=== PATIENT | female | born 1975 | race Caucasian/White ===

== ENCOUNTER 2016-11-13 20:49 | Emergency (ER) | payer BC, MEDICAID ==
[~2016-11-13] VITALS: Ht 172.7 cm; Wt 79.5 kg
[~2016-11-13 20:49] MED LIST: ABILIFY5 MG PO; ADDERALL XR30 MG PO; DESYREL 50MG50 MG PO; FLOVENT DI50 MCG/Act IH; IMITREX100 MG PO; KLONOPIN 0.5MG0.5 MG PO; MIRAPEX0.5 MG PO; NORCO 325 MG-51 TAB PO; PRIL40 PO; PROVENTIL0.09 MG/A1 IH; RESTORIL30 MG PO; RT ADVAIR 128 DISKUS IH; TOPAMAX50 MG PO; VALIUM 10MG10 MG/TAB PO; XOPENEX HF0.045 MG/A IH; ZYRTEC 10MG10 MG PO
[2016-11-13 20:53] VITALS: BP 119/80; TEMP 98
[2016-11-14 00:23] VITALS: PULSE 80
== END 2016-11-13 23:10 | disposition home or self-care (01) ==
LOC: COL.ER 20:49
DX: S63.502A Unspecified sprain of left wrist, initial encounter (principal); W10.1XXA Fall (on)(from) sidewalk curb, initial encounter; Y92.414 Local residential or business street as the place of occurrence of the external cause; J45.909 Unspecified asthma, uncomplicated; J44.9 Chronic obstructive pulmonary disease, unspecified; F17.210 Nicotine dependence, cigarettes, uncomplicated; F32.9 Major depressive disorder, single episode, unspecified; F41.9 Anxiety disorder, unspecified

== ENCOUNTER 2017-04-14 10:21 | Emergency (ER) | payer MEDICAID ==
[~2017-04-14] VITALS: Ht 172.7 cm; Wt 82.7 kg
[2017-04-14 10:26] VITALS: BP 111/78; TEMP 98.9
[2017-04-14 11:02] LABS: COLLECTION METHOD CLEAN CATCH
[2017-04-14] MEDS ORDERED: NEURONTIN300 MG/CAP PO (11:02)
[2017-04-14] MEDS ORDERED: XANAX .25M0.25 MG/TA PO (11:02)
[2017-04-14 11:07] LABS: PH 7 (5-8); SQUAMOUS EPITHELIAL 0-2 /hpf; URINE APPEARANCE Clear; URINE BACTERIA Rare /hpf; URINE BILIRUBIN Negative (NEGATIVE); URINE BLOOD Negative (NEGATIVE); URINE COLOR Straw; URINE GLUCOSE Negative (NEGATIVE); URINE KETONE Negative (NEGATIVE); URINE LEUKOCYTE ESTERASE Negative (NEGATIVE); URINE PROTEIN(semi-quant) Negative (NEGATIVE); URINE RBC 0-2 /hpf; URINE UROBILINOGEN Negative (NEGATIVE); URINE WBC 0-2 /hpf
[2017-04-14] MEDS ORDERED: NORCO 325 MG-51 TAB PO (11:42)
[2017-04-14 11:54] VITALS: PULSE 90
== END 2017-04-14 11:55 | disposition home or self-care (01) ==
LOC: COL.ER 10:21
PROVIDERS: Physician Assistant Medical
DX: S20.222A Contusion of left back wall of thorax, initial encounter (principal); S10.93XA Contusion of unspecified part of neck, initial encounter; Z90.710 Acquired absence of both cervix and uterus; W22.8XXA Striking against or struck by other objects, initial encounter
CPT/HCPCS: A9284

== ENCOUNTER 2017-07-09 18:34 | Emergency (ER) | payer MEDICAID ==
[~2017-07-09] VITALS: Ht 172.7 cm; Wt 79.1 kg
[~2017-07-09 18:34] MED LIST changes: +NEURONTIN300 MG/CAP PO; +XANAX .25M0.25 MG/TA PO
[2017-07-09 18:39] VITALS: TEMP 98.6
[2017-07-09] MEDS ORDERED: LYRICA 50MG CAP50 MG PO (18:58)
[2017-07-09] MEDS ORDERED: KLONOPIN WAF0.125 MG PO (18:59)
[2017-07-09 19:52] LABS: INFLUENZA A NEGATIVE; INFLUENZA B NEGATIVE
[2017-07-09 20:57] VITALS: BP 120/74; PULSE 80
== END 2017-07-09 21:00 | disposition home or self-care (01) ==
LOC: COL.ER 18:34
PROVIDERS: Nurse Practitioner
DX: J06.9 Acute upper respiratory infection, unspecified (principal); J45.909 Unspecified asthma, uncomplicated; G43.909 Migraine, unspecified, not intractable, without status migrainosus; K21.9 Gastro-esophageal reflux disease without esophagitis; M79.7 Fibromyalgia; F32.9 Major depressive disorder, single episode, unspecified; F41.9 Anxiety disorder, unspecified; F17.210 Nicotine dependence, cigarettes, uncomplicated

== ENCOUNTER 2018-01-11 18:37 | Emergency (ER) | payer MEDICAID ==
[~2018-01-11] VITALS: Ht 172.7 cm; Wt 86.4 kg
[~2018-01-11 18:37] MED LIST changes: +KLONOPIN WAF0.125 MG PO; +LYRICA 50MG CAP50 MG PO
[2018-01-11 18:40] VITALS: TEMP 97.6
[2018-01-11] MEDS ORDERED: DEPAKOTE500 MG PO (19:17)
[2018-01-11 19:29] LABS: COLLECTION METHOD CLEAN CATCH
[2018-01-11 19:36] LABS: MUCOUS Present /lpf; PH 5 (5-8); URINE APPEARANCE Clear; URINE BACTERIA None Seen /hpf; URINE BILIRUBIN Negative (NEGATIVE); URINE BLOOD Negative (NEGATIVE); URINE COLOR Yellow; URINE GLUCOSE Negative (NEGATIVE); URINE KETONE Negative (NEGATIVE); URINE LEUKOCYTE ESTERASE Negative (NEGATIVE); URINE NITRATE Negative (NEGATIVE); URINE PROTEIN(semi-quant) Negative (NEGATIVE); URINE RBC 0-2 /hpf; URINE UROBILINOGEN Negative (NEGATIVE)
[2018-01-11 21:20] VITALS: BP 125/70; PULSE 69
== END 2018-01-11 21:23 | disposition home or self-care (01) ==
LOC: COL.ER 18:37
PROVIDERS: Physician Assistant
DX: S60.212A Contusion of left wrist, initial encounter (principal); S90.01XA Contusion of right ankle, initial encounter; S90.31XA Contusion of right foot, initial encounter; G43.909 Migraine, unspecified, not intractable, without status migrainosus; M79.7 Fibromyalgia; F17.210 Nicotine dependence, cigarettes, uncomplicated; Z90.710 Acquired absence of both cervix and uterus; Z98.890 Other specified postprocedural states; Z86.73 Personal history of transient ischemic attack (TIA), and cerebral infarction without residual deficits; W10.9XXA Fall (on) (from) unspecified stairs and steps, initial encounter

== ENCOUNTER 2018-08-08 09:53 | Emergency (ER) | payer MEDICAID ==
[~2018-08-08] VITALS: Ht 172.7 cm; Wt 90.7 kg
[~2018-08-08 09:53] MED LIST changes: +DEPAKOTE500 MG PO
[2018-08-08 09:56] VITALS: TEMP 97.9
[2018-08-08 10:33] LABS: COLLECTION METHOD CLEAN CATCH
[2018-08-08 10:40] LABS: MUCOUS Present /lpf; PH 5 (5-8); SQUAMOUS EPITHELIAL 0-2 /hpf; URINE APPEARANCE Clear; URINE BACTERIA Rare /hpf; URINE BILIRUBIN Negative (NEGATIVE); URINE BLOOD Negative (NEGATIVE); URINE COLOR Yellow; URINE GLUCOSE Negative (NEGATIVE); URINE KETONE Negative (NEGATIVE); URINE LEUKOCYTE ESTERASE Negative (NEGATIVE); URINE NITRATE Negative (NEGATIVE); URINE PROTEIN(semi-quant) Negative (NEGATIVE); URINE RBC 0-2 /hpf; URINE UROBILINOGEN Negative (NEGATIVE)
[2018-08-08 10:41] LABS: BASO # 0.1 (0.0-0.2); BASO % 0.6 % (0.0-2.0); EOS # 0.2 (0.0-0.7); EOS % 1.9 % (0-4.0); GRAN # 5.3 (1.4-6.5); GRAN % 57.2 % (42.2-75.2); HEMATOCRIT 37.9 % (37.0-47.0); HEMOGLOBIN 13.1 g/dl (12.5-16.0); LYMPH # 3.1 (1.2-3.4); LYMPH % 33.3 % (20.0-51.0); MEAN CELL VOLUME 94 fl (80.0-100.0); MEAN CORPUSCULAR HEMOGLOBIN 33 pg (27.0-31.0); MEAN CORPUSCULAR HGB CONC 35 g/dl (33.0-37.0); MEAN PLATELET VOLUME 9.8 fl (7.4-10.4); MONO # 0.6 (0.1-0.6); MONO % 6.7 % (1.7-9.3); PLATELET COUNT 248 K/mm3 (130-400); RED BLOOD COUNT 4.02 M/mm3 (4.10-5.30); REDCELL DISTRIBUTION WIDTH-CV 12.7 % (11.5-14.5)
[2018-08-08] MEDS ORDERED: KLONOPIN 1MG1 MG PO (10:42)
[2018-08-08] MEDS ORDERED: MAXALT10 MG PO (10:42)
[2018-08-08 10:55] LABS: ALANINE AMINOTRANSFERASE 21 U/L (9-52); ALBUMIN 4.2 gm/dL (3.5-5.0); ALKALINE PHOSPHATASE 55 U/L (50-136); ANION GAP 9 mmol/L (7-16); AST,SGOT 17 U/L (15-37); BILIRUBIN,TOTAL 0.3 mg/dL (0.0-1.0); BLOOD UREA NITROGEN 5 mg/dL (7-17); CALCIUM 9.7 mg/dL (8.4-10.2); CARBON DIOXIDE 25 mmol/L (22-30); CHLORIDE 104 mmol/L (98-107); CREATININE, serum 0.61 mg/dL (0.52-1.25); GLUCOSE 80 mg/dL (74-106); LIPASE 70 U/L (23-300); POTASSIUM 3.7 mmol/L (3.4-5.0); SODIUM 138 mmol/L (137-145); TOTAL PROTEIN 7.1 gm/dL (6.4-8.2)
[2018-08-08 10:58] LABS: C-REACTIVE PROTEIN < 0.5 mg/dL (0.0-0.9)
[2018-08-08] MEDS ORDERED: FLEXERIL 1010 MG/TAB PO (12:55)
[2018-08-08 13:27] VITALS: BP 112/68; PULSE 65
== END 2018-08-08 13:27 | disposition home or self-care (01) ==
LOC: COL.ER 09:53
PROVIDERS: Physician Assistant
DX: M79.7 Fibromyalgia (principal); R10.9 Unspecified abdominal pain; J44.9 Chronic obstructive pulmonary disease, unspecified; G43.909 Migraine, unspecified, not intractable, without status migrainosus; F32.9 Major depressive disorder, single episode, unspecified; F41.9 Anxiety disorder, unspecified; F17.210 Nicotine dependence, cigarettes, uncomplicated; Z88.0 Allergy status to penicillin; Z88.5 Allergy status to narcotic agent; Z90.710 Acquired absence of both cervix and uterus
CPT/HCPCS: J1170; J2270; J2405; J2550; J7030; Q9967

== ENCOUNTER 2018-12-26 20:16 | Emergency (ER) | payer MEDICAID ==
[~2018-12-26] VITALS: Ht 172.7 cm; Wt 90.5 kg
[~2018-12-26 20:16] MED LIST changes: +FLEXERIL 1010 MG/TAB PO; +KLONOPIN 1MG1 MG PO; +MAXALT10 MG PO
[2018-12-26 20:24] VITALS: TEMP 99.3
[2018-12-26 21:03] LABS: BASO % 0.5 % (0.0-2.0); EOS # 0.1 (0.0-0.7); EOS % 1.6 % (0-4.0); GRAN # 4.9 (1.4-6.5); GRAN % 57.1 % (42.2-75.2); HEMATOCRIT 37.3 % (37.0-47.0); HEMOGLOBIN 12.6 g/dl (12.5-16.0); LYMPH # 2.7 (1.2-3.4); LYMPH % 31.6 % (20.0-51.0); MEAN CELL VOLUME 96 fl (80.0-100.0); MEAN CORPUSCULAR HEMOGLOBIN 32 pg (27.0-31.0); MEAN CORPUSCULAR HGB CONC 34 g/dl (33.0-37.0); MEAN PLATELET VOLUME 9.8 fl (7.4-10.4); MONO # 0.8 (0.1-0.6); MONO % 8.8 % (1.7-9.3); PLATELET COUNT 196 K/mm3 (130-400); REDCELL DISTRIBUTION WIDTH-CV 12.7 % (11.5-14.5)
[2018-12-26 21:21] LABS: ALBUMIN 3.8 gm/dL (3.5-5.0); BILIRUBIN,TOTAL 0.2 mg/dL (0.0-1.0); C-REACTIVE PROTEIN 6.3 mg/dL (0.0-0.9); CALCIUM 9.2 mg/dL (8.4-10.2); CREATININE, serum 0.7 (0.52-1.25); POTASSIUM 3.8 mmol/L (3.4-5.0); TOTAL PROTEIN 6.7 gm/dL (6.4-8.2)
[2018-12-26] MEDS ORDERED: ZOFRAN ODT4 MG PO (22:30)
[2018-12-27 01:28] VITALS: BP 102/63; PULSE 83
[2018-12-27] MEDS ORDERED: ZYRTEC 10MG10 MG PO (16:48)
[2018-12-27] MEDS ORDERED: AMITRIPTYLINE H25 M1 PO (16:49)
[2018-12-27] MEDS ORDERED: PROVENTIL0.09 MG/A1 IH (16:49)
[2018-12-27] MEDS ORDERED: MAG-OX 400400 MG/TAB PO (16:50)
[2018-12-27] MEDS ORDERED: RT ADVAIR HFA 2312 G IH (16:52)
[2018-12-27] MEDS ORDERED: SINGULAIR 110 MG/TAB PO ×2 (16:52→20:55)
[2018-12-27] MEDS ORDERED: KLONOPIN 0.5MG0.5 MG PO (20:51)
[2018-12-27] MEDS ORDERED: ZOFRAN8 MG PO (20:52)
[2018-12-27] MEDS ORDERED: LYRICA 150MG C150 MG PO (20:53)
[2018-12-27] MEDS ORDERED: PRIL40 PO (20:54)
== END 2018-12-27 01:29 | disposition home or self-care (01) ==
LOC: COL.ER 20:16
PROVIDERS: Emergency Medicine
DX: R11.2 Nausea with vomiting, unspecified (principal); R19.7 Diarrhea, unspecified; G43.909 Migraine, unspecified, not intractable, without status migrainosus; M79.7 Fibromyalgia; Z88.0 Allergy status to penicillin; Z88.5 Allergy status to narcotic agent; Z90.710 Acquired absence of both cervix and uterus
CPT/HCPCS: J2060; J2405; J2550; J3010; J7030

== ENCOUNTER 2018-12-27 16:21 | Inpatient (IN) | payer MEDICAID ==
[~2018-12-27] VITALS: Ht 172.7 cm; Wt 87.9 kg
[~2018-12-27 16:21] MED LIST changes: +ZOFRAN ODT4 MG PO
[2018-12-27] MEDS ORDERED: ZYRTEC 10MG10 MG PO (16:48)
[2018-12-27] MEDS ORDERED: PROVENTIL0.09 MG/A1 IH (16:49)
[2018-12-27] MEDS ORDERED: AMITRIPTYLINE H25 M1 PO (16:49)
[2018-12-27] MEDS ORDERED: MAG-OX 400400 MG/TAB PO (16:50)
[2018-12-27] MEDS ORDERED: SINGULAIR 110 MG/TAB PO ×2 (16:52→20:55)
[2018-12-27] MEDS ORDERED: RT ADVAIR HFA 2312 G IH (16:52)
[2018-12-27 17:16] LABS: BASO # 0.1 (0.0-0.2); BASO % 0.7 % (0.0-2.0); EOS # 0.2 (0.0-0.7); EOS % 2.5 % (0-4.0); GRAN # 2.9 (1.4-6.5); GRAN % 41.5 % (42.2-75.2); HEMATOCRIT 37.4 % (37.0-47.0); HEMOGLOBIN 12.3 g/dl (12.5-16.0); LYMPH # 3.1 (1.2-3.4); LYMPH % 44.3 % (20.0-51.0); MEAN CELL VOLUME 96 fl (80.0-100.0); MEAN CORPUSCULAR HEMOGLOBIN 32 pg (27.0-31.0); MEAN CORPUSCULAR HGB CONC 33 g/dl (33.0-37.0); MEAN PLATELET VOLUME 9.7 fl (7.4-10.4); MONO # 0.7 (0.1-0.6); MONO % 10.7 % (1.7-9.3); PLATELET COUNT 241 K/mm3 (130-400); RED BLOOD COUNT 3.88 M/mm3 (4.10-5.30); REDCELL DISTRIBUTION WIDTH-CV 12.8 % (11.5-14.5)
[2018-12-27 17:32] LABS: ALBUMIN 3.7 gm/dL (3.5-5.0); BILIRUBIN,TOTAL 0.1 mg/dL (0.0-1.0); C-REACTIVE PROTEIN 6.1 mg/dL (0.0-0.9); CALCIUM 9.1 mg/dL (8.4-10.2); CREATININE, serum 0.68 (0.52-1.25); TOTAL PROTEIN 6.6 gm/dL (6.4-8.2)
--- NOTE | 2018-12-27 20:20 | NUR ---
Pt arrives to surgical floor via stretcher from ER. Transferred to bed. at bedside. Pt c/o LLQ pain 5/10 that is cramping and constant. Pt also c/o nausea. Abdomen soft, tender. BS+. Respirations even and unlabored. Lungs clear. IV in L AC. Pt requests to have site moved. No needs noted at this time. Will continue to monitor.
[2018-12-27] MEDS ORDERED: KLONOPIN 0.5MG0.5 MG PO (20:51)
[2018-12-27] MEDS ORDERED: ZOFRAN8 MG PO (20:52)
[2018-12-27] MEDS ORDERED: LYRICA 150MG C150 MG PO (20:53)
[2018-12-27] MEDS ORDERED: PRIL40 PO (20:54)
[2018-12-27 21:15] VITALS: BP 96/65; PULSE 76; TEMP 97.5
[2018-12-27 22:12] VITALS: BP 96/65; PULSE 76; TEMP 97.5
[2018-12-27 23:07] LABS: COLLECTION METHOD CLEAN CATCH
[2018-12-27 23:16] VITALS: BP 89/50; PULSE 72; PULSE 74; TEMP 97.7
--- NOTE | 2018-12-27 23:23 | NUR ---
Second dose of Fentanyl given and patient reporting itching that she had after Dilaudid in ER. Meche FALCON called, but was unable to talk at the moment. Pts blood pressure is also low. Will continue to monitor.
[2018-12-27 23:24] LABS: MUCOUS Present /lpf; PH 5 (5-8); URINE APPEARANCE Clear; URINE BACTERIA Rare /hpf; URINE BILIRUBIN Negative (NEGATIVE); URINE BLOOD Negative (NEGATIVE); URINE COLOR Yellow; URINE GLUCOSE Negative (NEGATIVE); URINE KETONE Negative (NEGATIVE); URINE LEUKOCYTE ESTERASE Negative (NEGATIVE); URINE NITRATE Negative (NEGATIVE); URINE PROTEIN(semi-quant) Negative (NEGATIVE); URINE RBC 0-2 /hpf; URINE UROBILINOGEN Negative (NEGATIVE)
[2018-12-27 23:53] VITALS: BP 89/50; PULSE 74; TEMP 98
--- NOTE | 2018-12-28 | NUR ---
Orders received from Meche FALCON to give Benadryl IV for itching. Minerva also made aware of patients blood pressure. No other orders.
[2018-12-28 03:42] VITALS: BP 82/54; PULSE 70; TEMP 98
--- NOTE | 2018-12-28 03:45 | NUR ---
Pt states that her pain is starting to come back and again. PRN pain meds given. Pt denies nausea or itching.
--- NOTE | 2018-12-28 06:00 | NUR ---
Pt resting with HOB elevated this AM. No distress noted. Pt reporting pain in LLQ is increased to 5/10 and is requesting PRN meds. Pt has been hypotension. Provider aware and no orders were given. Pt is asymptomatic and reports that her blood pressure runs low normally. No needs noted.
[2018-12-28 06:12] LABS: BASO # 0.1 (0.0-0.2); EOS # 0.1 (0.0-0.7); EOS % 2.5 % (0-4.0); GRAN # 2.3 (1.4-6.5); GRAN % 48.1 % (42.2-75.2); HEMOGLOBIN 11.1 g/dl (12.5-16.0); LYMPH # 1.9 (1.2-3.4); LYMPH % 39.3 % (20.0-51.0); MEAN CELL VOLUME 97 fl (80.0-100.0); MEAN CORPUSCULAR HEMOGLOBIN 32 pg (27.0-31.0); MEAN CORPUSCULAR HGB CONC 33 g/dl (33.0-37.0); MONO # 0.4 (0.1-0.6); MONO % 8.7 % (1.7-9.3); PLATELET COUNT 217 K/mm3 (130-400); RED BLOOD COUNT 3.46 M/mm3 (4.10-5.30); REDCELL DISTRIBUTION WIDTH-CV 12.9 % (11.5-14.5)
[2018-12-28 06:22] LABS: HEMATOCRIT 33.6 % (37.0-47.0)
[2018-12-28 06:24] LABS: ALANINE AMINOTRANSFERASE 44 U/L (9-52); ALKALINE PHOSPHATASE 50 U/L (50-136); ANION GAP 6 mmol/L (7-16); AST,SGOT 43 U/L (15-37); BILIRUBIN,TOTAL < 0.1 mg/dL (0.0-1.0); BLOOD UREA NITROGEN 7 mg/dL (7-17); CALCIUM 8.2 mg/dL (8.4-10.2); CARBON DIOXIDE 24 mmol/L (22-30); CHLORIDE 111 mmol/L (98-107); CREATININE, serum 0.67 (0.52-1.25); GLUCOSE 101 mg/dL (74-106); POTASSIUM 3.9 mmol/L (3.4-5.0); SODIUM 142 mmol/L (137-145); TOTAL PROTEIN 5.7 gm/dL (6.4-8.2)
--- NOTE | 2018-12-28 08:00 | NUR ---
Patient in bed resting. Alert and oriented x 3. Shift assessment complete. Patient states mild pain to Left quadrant will call when she needs something for pain. Family at bedside. Denies further needs at this time.
[2018-12-28 08:33] VITALS: BP 86/50; PULSE 72; TEMP 98.4
--- NOTE | 2018-12-28 11:11 | NUR ---
First visit from the lumber bearer. No needs right now.
[2018-12-28 12:15] VITALS: BP 90/54; PULSE 76; TEMP 97.9
--- NOTE | 2018-12-28 13:12 | NUR ---
SW attended clinical rounding and met with patient to discuss discharge planning. Patient lives with her Rui. Her PCP is Dr Ed Villarreal and she obtains her medications at [facility]. Patient reports she has a dpoa however we do not have a copy. Patient plans on DC home with family support. JOSE RAMON will continue to follow.
--- NOTE | 2018-12-28 15:05 | NUR ---
Patient states pain continues to be 6/10, states that one norco did not help with her pain last time it was given. 2 [place] given at this time.
[2018-12-28 17:04] VITALS: BP 94/57; PULSE 69; TEMP 97.9
--- NOTE | 2018-12-28 18:41 | NUR ---
Patient has done well today, has requested pain medications throughout the day. Given per orders. Tolerating clear liquids without nausea/vomiting. Ambulated in tanner >200 feet with spouse, steady gait. Denies further needs at this time. Reported off to casino shift manager.
[2018-12-28 19:11] VITALS: BP 90/50; PULSE 75; TEMP 98.3
[2018-12-29 00:08] VITALS: BP 94/59; PULSE 76; TEMP 98.2
[2018-12-29 03:50] VITALS: BP 98/57; PULSE 70; TEMP 98.6
[2018-12-29 06:40] LABS: BASO % 0.8 % (0.0-2.0); EOS # 0.1 (0.0-0.7); EOS % 2.2 % (0-4.0); GRAN # 2.2 (1.4-6.5); GRAN % 45.2 % (42.2-75.2); HEMOGLOBIN 10.8 g/dl (12.5-16.0); LYMPH # 2.1 (1.2-3.4); LYMPH % 43.2 % (20.0-51.0); MEAN CELL VOLUME 96 fl (80.0-100.0); MEAN CORPUSCULAR HEMOGLOBIN 32 pg (27.0-31.0); MEAN CORPUSCULAR HGB CONC 33 g/dl (33.0-37.0); MEAN PLATELET VOLUME 10.2 fl (7.4-10.4); MONO # 0.4 (0.1-0.6); MONO % 8.4 % (1.7-9.3); PLATELET COUNT 235 K/mm3 (130-400); RED BLOOD COUNT 3.37 M/mm3 (4.10-5.30); REDCELL DISTRIBUTION WIDTH-CV 12.6 % (11.5-14.5)
[2018-12-29 06:52] LABS: ANION GAP 7 mmol/L (7-16); CALCIUM 8.9 mg/dL (8.4-10.2); CARBON DIOXIDE 26 mmol/L (22-30); CHLORIDE 110 mmol/L (98-107); CREATININE, serum 0.63 (0.52-1.25); GLUCOSE 87 mg/dL (74-106); POTASSIUM 4.1 mmol/L (3.4-5.0); SODIUM 142 mmol/L (137-145)
[2018-12-29 06:55] LABS: HEMATOCRIT 32.4 % (37.0-47.0)
[2018-12-29 07:04] LABS: BLOOD UREA NITROGEN < 2 mg/dL (7-17)
[2018-12-29 08:08] VITALS: BP 103/62; PULSE 69; TEMP 98.4
--- NOTE | 2018-12-29 09:45 | NUR ---
Patient alert and oriented, answers questions appropriately. See assessment. Abdomen soft, non tender, non distended. Bowel sounds active x4 quads. + Flatus. No bowel movement since Friday. C/o 11/30 abdominal pain. No other c/o at this time.
--- NOTE | 2018-12-29 10:51 | NUR ---
Initial visit; Patient and her thanked Customer Retention Specialist for offering spiritual care. Customer Retention Specialist will keep Zulema in her prayers.
[2018-12-29 12:28] VITALS: BP 101/67; PULSE 74; TEMP 97.9
[2018-12-29] MEDS ORDERED: CIPRO 500MG TA500 MG PO (17:19)
[2018-12-29] MEDS ORDERED: FLAGYL500 MG PO (17:20)
[2018-12-29] MEDS ORDERED: NORCO 325 MG-51 TAB PO (17:22)
[2018-12-29 17:30] VITALS: BP 113/72; PULSE 82; TEMP 98.2
[2018-12-29] MEDS ORDERED: ZOFRAN 4MG T4 MG/TAB PO (17:46)
[2018-12-29 18:10] VITALS: BP 113/72; PULSE 82; TEMP 98.3
--- NOTE | 2018-12-29 18:22 | NUR ---
Discharge instructions reviewed with patient and spouse, verbalized understanding. Discharged ambulatory to auto/home with family at 1820.
== END 2018-12-29 18:20 | disposition home or self-care (01) | DRG 392 ==
LOC: COL.ER 16:21 → SURG 18:40
PROVIDERS: Emergency Medicine; Nurse Practitioner Family; ADMIT Internal Medicine
DX: K57.32 Diverticulitis of large intestine without perforation or abscess without bleeding (principal); F41.8 Other specified anxiety disorders; F43.10 Post-traumatic stress disorder, unspecified; G43.909 Migraine, unspecified, not intractable, without status migrainosus; K21.9 Gastro-esophageal reflux disease without esophagitis; J45.909 Unspecified asthma, uncomplicated; M79.7 Fibromyalgia; F17.200 Nicotine dependence, unspecified, uncomplicated; Z87.820 Personal history of traumatic brain injury; F06.8 Other specified mental disorders due to known physiological condition; Z88.0 Allergy status to penicillin; Z88.8 Allergy status to other drugs, medicaments and biological substances
CPT/HCPCS: 99222-AI; 99232-AI; 99239; A9284; J0744; J1170; J1200; J1650; J2060; J2270; J2405; J3010; J7030; Q9967

== ENCOUNTER 2019-01-01 20:04 | Emergency (ER) | payer MEDICAID ==
[~2019-01-01] VITALS: Ht 172.7 cm; Wt 90.5 kg
[~2019-01-01 20:04] MED LIST changes: +AMITRIPTYLINE H25 M1 PO; +CIPRO 500MG TA500 MG PO; +FLAGYL500 MG PO; +LYRICA 150MG C150 MG PO; +MAG-OX 400400 MG/TAB PO; +RT ADVAIR HFA 2312 G IH; +SINGULAIR 110 MG/TAB PO; +ZOFRAN 4MG T4 MG/TAB PO; +ZOFRAN8 MG PO
[2019-01-01 20:14] VITALS: BP 108/65; TEMP 97.2
[2019-01-01 22:11] LABS: BASO # 0.1 (0.0-0.2); BASO % 0.9 % (0.0-2.0); EOS # 0.2 (0.0-0.7); GRAN # 4.3 (1.4-6.5); GRAN % 47.8 % (42.2-75.2); HEMATOCRIT 38.5 % (37.0-47.0); HEMOGLOBIN 12.9 g/dl (12.5-16.0); LYMPH # 3.7 (1.2-3.4); LYMPH % 40.8 % (20.0-51.0); MEAN CELL VOLUME 96 fl (80.0-100.0); MEAN CORPUSCULAR HEMOGLOBIN 32 pg (27.0-31.0); MEAN CORPUSCULAR HGB CONC 34 g/dl (33.0-37.0); MEAN PLATELET VOLUME 9.8 fl (7.4-10.4); MONO # 0.7 (0.1-0.6); MONO % 7.6 % (1.7-9.3); PLATELET COUNT 289 K/mm3 (130-400); RED BLOOD COUNT 4.01 M/mm3 (4.10-5.30)
[2019-01-01 22:23] LABS: ALBUMIN 4.1 gm/dL (3.5-5.0); BILIRUBIN,TOTAL 0.3 mg/dL (0.0-1.0); C-REACTIVE PROTEIN 0.7 mg/dL (0.0-0.9); CALCIUM 9.6 mg/dL (8.4-10.2); CREATININE, serum 0.7 (0.52-1.25); POTASSIUM 4.4 mmol/L (3.4-5.0); TOTAL PROTEIN 7.2 gm/dL (6.4-8.2)
[2019-01-01 23:28] VITALS: PULSE 77
== END 2019-01-01 23:30 | disposition home or self-care (01) ==
LOC: COL.ER 20:04
PROVIDERS: Emergency Medicine
DX: R10.9 Unspecified abdominal pain (principal); Z90.710 Acquired absence of both cervix and uterus
CPT/HCPCS: J0780; J1170; J1200; J7030

== ENCOUNTER 2023-10-17 10:00 | Day surgery (SDC) | payer BC ==
[~2023-10-17] VITALS: Ht 172.7 cm; Wt 76.4 kg
[~2023-10-17 10:00] MED LIST changes: +HYDROmorphone 1 MG/1 ML SYRINGE [PACU/SDC ONLY] IV PRN; +LR 1,000 ML IV SCH; +Meperidine 50 MG/ML 1 ML VIAL IV PRN; +Ondansetron 4 MG/2 ML VIAL IV PRN; +droPERidol 2.5 MG/ML 2 ML VIAL IV PRN; +fentaNYL 50 MCG/ML 1 ML SYRINGE/VIAL [PACU/SDC ONLY] IV PRN; +hydrALAZINE 20 MG/ML 1 ML VIAL IV PRN
--- NOTE | 2023-10-17 10:02 | NUR ---
PATIENT ADMITTED TO ROOM 5 AMBUALTORY AND IS ORIENTED TO ROOM. VOICES UNDERSTANDING OF SURGERY AND ANESTHESIA AND CONSENTS SIGNED. ADMITS TO BEING NERVOUS AND ANXIOUS RE: SURGERY. ALL QUESTIONS ANSWERED.
[2023-10-17] MEDS ORDERED: Indocyanine Green 12.5 MG in Water For Injection,Sterile 2.5 ML IV ONE (11:00)
--- NOTE | 2023-10-17 11:00 | NUR ---
IV STARTED AND ICG 12.5MG IV GIVEN ORDERED. TOLERATED WELL. SPOUSE AND SISTER IN THE ROOM. PATIENT RESTING ON CART AND CALL LIGHT IN REACH.
--- NOTE | 2023-10-17 11:30 | NUR ---
ASSISTED UP TO THE BATHROOM AND VOIDS. GAIT STEADY.
[2023-10-17 11:47] VITALS: BP 114/68; PULSE 91; TEMP 98.6
[2023-10-17] MEDS ORDERED: ADDERALL XR20 MG PO (11:57)
[2023-10-17] MEDS ORDERED: TRILEPTAL600 MG PO (11:59)
[2023-10-17] MEDS ORDERED: PRISTIQ100 MG PO (11:59)
[2023-10-17] MEDS ORDERED: MELATONIN ER10 MG PO (12:01)
--- NOTE | 2023-10-17 12:15 | NUR ---
AGAIN UP TO THE BATHROOM AND VOIDS. EXPLAINED THAT DR. HERNANDEZ WILL BE IN TO TALK WITH PATIENT WHEN HE IS AVAILALBE.
[2023-10-17] MEDS ORDERED: NORCO 325 MG-51 TAB PO (12:38)
--- NOTE | 2023-10-17 12:40 | NUR ---
PATIENT IS DEMANDING ICE CHIPS AND BECOMING AGITATED WITH WAIT FOR SURGERY. STATES I WAS SUPPOSED TO HAVE MY SURGERY START AT 1200. STATES I'VE BEEN HERE SINCE 1000 AND I NEED WATER. GRAYSON SPIVEY RN DIRECTOR OF PULMONARY UNIT IN THE ROOM AND TALKS WITH PATIENT EXPLAINING THAT SURGERY WAS DELAYED D/T PATIENT NEEDING SURGERY URGENTLY. VISHNU Ybarra CRNA ALSO NOTIFIED AND ORDER RECEIVED FOR VALIUM 10MG PO.
[2023-10-17] MEDS ORDERED: Ondansetron 4 MG/2 ML VIAL IV PRN (12:45)
[2023-10-17] MEDS ORDERED: diazePAM 10 MG TAB PO ONE (13:00)
--- NOTE | 2023-10-17 13:00 | NUR ---
VALIUM 10MG PO GIVEN TO ASSIST WITH CALMING PATIENT. CONTINUES TO REST ON CART SPOUSE AND SISTER IN THE ROOM. CALL LIGHT IN REACH.
[2023-10-17] MEDS ORDERED: fentaNYL 50 MCG/ML 2 ML VIAL ONE (13:39)
[2023-10-17] MEDS ORDERED: Rocuronium 50 MG/5 ML Multi-Dose VIAL ONE (13:39)
[2023-10-17] MEDS ORDERED: NS 10 ML IV ONE (13:41)
--- NOTE | 2023-10-17 14:00 | NUR ---
RESTING WITH EYES CLOSED AND NO FURTHER COMPAINTS. FAMILY REMAINS IN THE ROOM AND ASSISTS WITH CALMING PATIENT. FAMILY IS UNDERSTANDING OF THE SITUATION.
--- NOTE | 2023-10-17 14:40 | NUR ---
PATIENT IS AWAKE AND COMPLAINING OF HEADACHE. HAD BEEN RESTING WITH EYES CLOSED. VISHNU Ybarra CRNA INFORMED AND PATIENT MAY HAVE 650MG PO NOW.
[2023-10-17] MEDS ORDERED: Acetaminophen 325 MG TAB PO ONE (14:45)
--- NOTE | 2023-10-17 14:48 | NUR ---
TYLENOL 650MG PO GIVEN. PATIENT STATES THAT IF SHE IS NOT IN SURERY BY 1600 SHE WILL LEAVE. CHANTELLE LOPEZ NOTIFIED AND SHE WILL RELAY THIS TO DR. HERNANDEZ.
--- NOTE | 2023-10-17 15:20 | NUR ---
PATIENT TAKEN TO SURGERY PER CART ACCOMPANIED BY CHANTELLE LOPEZ.
[2023-10-17] MEDS ORDERED: dexAMETHasone 10 MG/ML VIAL ONE (15:30)
[2023-10-17] MEDS ORDERED: Ondansetron 4 MG/2 ML VIAL ONE (15:30)
[2023-10-17] MEDS ORDERED: Topical Skin Adhesive 1 EACH (1 ML) TOP ONE (16:22)
[2023-10-17 16:49] VITALS: TEMP 98.5
[2023-10-17 17:00] VITALS: BP 132/67; PULSE 68
--- NOTE | 2023-10-17 17:00 | NUR ---
PATIENT RETURNS TO 5 PER CART FROM PACU ACCOMPANIED BY KIM LOPEZ AND AROUSES TO VERBAL STIMULI. INCISIONAL SITES X4 ON ABDOMEN COVERED WITH SKIN GLUE AND WOUND EDGES WELL APPROIXMATED. IVF INFUSING AND SITE IS FREE FO REDNESS OR SWELLING. FAMILY IN ROOM. CALL LIGHT IN REACH AND SIDERAILS UP X2. ALLOWED TO REST. DENIES ANY FURTHER NAUSEA AND STATES PAIN IS TOLERABLE AT 3/10.
[2023-10-17 17:15] VITALS: BP 126/73; PULSE 73
--- NOTE | 2023-10-17 17:15 | NUR ---
SIPPING ON SPRITE AND TALKING WITH SPOUSE AND SISTER.
[2023-10-17 17:30] VITALS: BP 116/73; PULSE 72
--- NOTE | 2023-10-17 17:30 | NUR ---
SITTING UP ON CART AND STATES WANTS TO GO HOME. VSS. IV DISCONTINUED AND DENIES PAIN OR NAUSEA. SPOUSE ASSISTS PATIENT WITH DRESSING. 1733 AMBULATORY TO BR AND GAIT STEADY. VOIDS AND RETURNS TO ROOM. DISMISSAL INSTRUCTIONS GIVEN AND VOICES UNDERSTANDING OF THESE. SPOUSE ALSO DENIES ANY QUESTIONS. 1735 PATIENT DISCHARGED TO HOME PER PRIVATE VEHILCE DRIVEN BY SPOUSE AND ASSISTED INTO CAR BY THIS RN WITH INSTRUCTIONS IN HAND.
== END 2023-10-17 17:35 | disposition home or self-care (01) ==
LOC: SDCO 10:00
DX: K80.10 Calculus of gallbladder with chronic cholecystitis without obstruction (principal); F17.210 Nicotine dependence, cigarettes, uncomplicated
CPT/HCPCS: J0690; J1100; J1790; J2405; J2704; J3010; J7120